=== PATIENT | male | born 1990 | race Asian ===

== ENCOUNTER 2022-07-18 12:08 | Emergency (ER) | payer BC ==
[~2022-07-18] VITALS: Ht 175.3 cm; Wt 86.4 kg
[2022-07-18] MEDS ORDERED: SODIUM CHLORIDE 0.9% 1,000 ML IV ONE (12:30)
[2022-07-18 13:00] LABS: COVID AG,FIA SOURCE NASAL SWAB
[2022-07-18 13:03] LABS: BASOPHILS % (AUTO) 1.1 % (0.0-2.0); EOSINOPHILS % (AUTO) 0.1 % (1.0-6.0); HEMATOCRIT 45.3 % (41-53); LYMPHOCYTES # (AUTO) 1.4 K/uL (1.0-4.8); LYMPHOCYTES % (AUTO) 25.9 % (22.0-44.0); MEAN CORPUSCULAR HEMOGLOBIN 21.5 pg (26.0-34.0); MEAN CORPUSCULAR HGB CONC 30.8 G/dL (31.0-37.0); MEAN CORPUSCULAR VOLUME 70 fL (80-100); MONOCYTES # (AUTO) 0.7 K/uL (0.1-1.0); MONOCYTES % (AUTO) 13.7 % (2.0-9.0); NEUTROPHILS # (AUTO) 3.2 K/uL (1.8-7.7); NEUTROPHILS % (AUTO) 59.2 % (40.0-70.0); PLATELET COUNT (AUTO) 302 K/uL (150-450); RED BLOOD CELL COUNT(AUTO) 6.49 MIL/uL (4.50-5.90); RED CELL DISTRIBUTION WIDTH 15.1 % (11.5-14.5)
[2022-07-18 13:12] LABS: ANION GAP 10 mmol/L (8-16); CALCIUM, TOTAL 9.3 mg/dL (8.8-10.5); CARBON DIOXIDE 25 mmol/L (22-29); CHLORIDE 100 mmol/L (98-107); CREATININE 1.06 mg/dL (0.60-1.30); GLOMERULAR FILTR. RATE CALC > 60 mL/min (>60); GLUCOSE,RANDOM 114 mg/dL (70-110); POTASSIUM 3.8 mmol/L (3.5-5.1); SODIUM SERUM 135 mmol/L (136-145); UREA NITROGEN, BLOOD 17 mg/dL (7-18)
[2022-07-18 13:20] LABS: ALANINE AMINOTRANSFERASE 30 U/L (12-78); ALBUMIN 4.1 g/dL (3.4-5.0); ALKALINE PHOSPHATASE 93 U/L (46-116); ASPARTATE AMINOTRANSFERASE 26 U/L (15-37); BILIRUBIN,TOTAL 0.4 mg/dL (0.1-1.0)
[2022-07-18 13:27] LABS: INFLUENZA TYPE A NEGATIVE FOR TYPE A (NEGATIVE); INFLUENZA TYPE B NEGATIVE FOR TYPE B (NEGATIVE)
[2022-07-18] MEDS ORDERED: NIRM1TAB4 PO ×2 (13:45→19:18)
[2022-07-18 13:49] VITALS: BP 118/77
[2022-07-18 15:11] LABS: GLUCOSE,POINT OF CARE 104 MG/DL (70-110)
== END 2022-07-18 14:04 | disposition home or self-care (01) ==
LOC: EMS 12:11
DX: U07.1 COVID-19 (principal)
CPT/HCPCS: 99285; 96360; 70450; 71045; 87426; 80053; 82962; 84484; 85025; 87804; 93005; J7030

== ENCOUNTER 2022-07-18 14:24 | Emergency (ER) | payer BC ==
[~2022-07-18] VITALS: Ht 167.6 cm; Wt 65.9 kg
[~2022-07-18 14:24] MED LIST: NIRM1TAB4 PO
[2022-07-18] MEDS ORDERED: NIRM1TAB4 PO (19:18)
[2022-07-18 20:01] VITALS: BP 123/78
== END 2022-07-18 20:17 | disposition home or self-care (01) ==
LOC: EMS 14:29
DX: U07.1 COVID-19 (principal)
CPT/HCPCS: 82962; 99283